=== PATIENT | female | born 1955 | race Caucasian/White ===

== ENCOUNTER → 2023-10-03 15:45 | Outpatient (REF) | payer MEDICARE, OTHER, SELFPAY | LOC: WDC 15:45 | PROVIDERS: ATTENDING PHYSICIAN Physician Assistant Medical | DX: Z12.31 Encounter for screening mammogram for malignant neoplasm of breast (principal) | CPT/HCPCS: 77063; 77067 ==

== ENCOUNTER 2023-10-07 06:31 | Inpatient (IN) | payer MEDICARE, OTHER, SELFPAY ==
--- NOTE | 2023-09-04 11:32 | CM ---
Patient is scheduled for a R TK Revision on 10/07/23. Spoke with patient prior to surgery via telephone. Patient had a R TKR at in 2018. Reintroduced role of Orthopedic Navigator. Patient reports that she lives with her and daughter in a
two story home. There are two steps to enter and a flight of steps to the second floor. There is a powder room on the entry clerk. She currently functions independently. She has a cane and rolling walker. She has never had VN services. PCP is Shay
Fab.
Discussed orthopedic program and post surgical plans. Reviewed anticipated length of stay and that goal is for her to return home at discharge. Also reviewed outpatient PT. Patient is in agreement with tentative plan and will go directly to
outpatient PT at [facility]. She will have support from her and daughter when she goes home.
Patient will complete online education.
Plan: Orthopedic Navigator will remain available to assist with the care of patient and will reassess discharge needs after surgery.
[2023-09-18 14:02] VITALS: BMI 37.3
[2023-09-18 14:31] LABS: Hematocrit 40.6 % (37.0-47.0); Hemoglobin 13.1 g/dL (12.0-16.0); Mean Corp Hgb Conc. 32.3 g/dL (33.0-37.0); Mean Corpuscular Hgb 29.1 pg (27.0-31.0); Mean Corpuscular Volume 90.2 fL (81.0-99.0); Mean Platelet Volume 9.3 fL (7.4-10.4); Platelet Count 232 10^3/uL (130-400); Red Cell Dist. Width 13.7 % (11.5-14.5); White Blood Cell Count 7.9 10^3/uL (4.8-10.8)
[2023-09-18 14:45] LABS: ALT (SGPT) 31 U/L (0-35); AST (SGOT) 27 U/L (14-36); Albumin 3.9 g/dl (3.5-5.0); Alkaline Phosphatase 84 U/L (38-126); Blood Urea Nitrogen 29 mg/dl (7-17); Calcium 9.3 mg/dl (8.4-10.2); Carbon Dioxide 31 mmol/L (22-30); Chloride 103 mmol/L (98-107); Estimated Creatinine Clearance 67 ml/min; Glucose 111 mg/dl (70-99); Potassium 3.9 mmol/L (3.5-5.1); Sodium 138 mmol/L (135-145); Total Bilirubin 0.6 mg/dl (0.2-1.3); Total Protein 6.4 g/dl (6.3-8.2); eGFR > 60.00
[2023-09-18 14:50] VITALS: BMI 37.3
[2023-09-19 09:48] LABS: Glycohemoglobin (HgbA1c) 5.5 % (4.0-5.6)
[2023-10-07] VITALS (12 sets, daily range): BP systolic 107–133; BP diastolic 53–95
[2023-10-07] MEDS: TYLENOL 650 MG PO ×2 (10:55→18:56)
[2023-10-07] MEDS: CELEBREX 200 MG PO (10:55)
[2023-10-07] MEDS: NORMOSOL-R 1000 IV ×2 (11:06→17:47)
[2023-10-07] MEDS: ROXICODONE 5 MG PO (17:30)
[2023-10-07] MEDS: DILAUDID 0.25 MG IV ×4 (17:33→18:02)
[2023-10-07] MEDS: ULTRAM 50 MG PO ×2 (18:56→21:46)
[2023-10-07] MEDS: ASPIRIN 325 MG PO (18:56)
[2023-10-07] MEDS: DECADRON 4 MG PO (20:06)
[2023-10-07] MEDS: SENOKOT 17.1999999999999993 MG PO (20:06)
[2023-10-07] MEDS: COLACE 100 MG PO (20:06)
[2023-10-07] MEDS: BACTROBAN 2% OINTMENT 1 APPLIC NASAL (20:06)
[2023-10-07] MEDS: TORADOL 15 MG IV (20:07)
[2023-10-07] MEDS: TYLENOL PO (21:00)
[2023-10-07] MEDS: ANCEF 5 IV (21:45)
[2023-10-07] MEDS: NEURONTIN 300 MG PO (21:45)
[2023-10-07] MEDS: PEPCID 20 MG PO (21:46)
[2023-10-07] MEDS: LIPITOR 20 MG PO (21:46)
[2023-10-08] MEDS: TYLENOL PO ×2 (00:51→05:00)
[2023-10-08 03:36] VITALS: BP 113/68
[2023-10-08] MEDS: ANCEF 5 IV (05:04)
[2023-10-08 07:10] VITALS: BP 133/73
[2023-10-08] MEDS: ULTRAM 50 MG PO ×2 (08:36→12:48)
[2023-10-08] MEDS: TYLENOL 650 MG PO ×2 (08:37→12:45)
[2023-10-08] MEDS: DECADRON 4 MG PO (08:37)
[2023-10-08] MEDS: COLACE 100 MG PO (08:37)
[2023-10-08] MEDS: MOBIC 15 MG PO (08:37)
[2023-10-08] MEDS: BACTROBAN 2% OINTMENT 1 APPLIC NASAL (08:37)
[2023-10-08] MEDS: SENOKOT 17.1999999999999993 MG PO (08:37)
[2023-10-08] MEDS: TORADOL 15 MG IV (08:38)
[2023-10-08] MEDS: ASPIRIN 325 MG PO (08:38)
[2023-10-08] MEDS: FLUSH (NSS) 2 FLUSH IV (08:39)
[2023-10-08 09:56] VITALS: BP 121/65; PULSE 75; O2SAT 94
[2023-10-08 10:40] VITALS: BP 100/63; PULSE 71; O2SAT 93
[2023-10-08] MEDS: ROXICODONE 5 MG PO (11:10)
--- NOTE | 2023-10-08 11:16 | W.PN.ORTHO ---
Today's Communication / Plan
-
d/c
Assessment
.
Distal Motor Intact: Yes
Dressing:
Clean, dry and intact.
Plan
.
Surgery / Date: R TKA Revision Dr. Brown 10/07/23
DVT Prophylaxis: Aspirin
Activity:
Out of bed.
PT/OT
Discharge Plan: Home w/ Outpatient PT
Subjective
.
.:
Patient resting comfortably.
Vital Signs and Labs
.
Vital Signs and Labs:
Lab Results
09/18/23 13:55
09/18/23 13:55
Temp Pulse Resp BP Pulse Ox
97.8 F 73 17 133/73 92
10/08/23 07:10 10/08/23 07:10 10/08/23 07:10 10/08/23 08:38 10/08/23 07:10
Non-invasive Hgb result: 14.2
Physical Exam
-
HEENT: No pallor, cyanosis, or jaundice. Throat clear.
NECK: Supple. No JVD.
RESPIRATORY: Lungs clear to auscultation.
CVS: S1, S2 normal. RRR.� No murmur, rub or gallop.
ABDOMEN: Soft, non-tender. No distension. BS+/normal.
EXTREMITIES: strength equal, no calf pain with palpation
CLIENT SUPPORT COORDINATOR: AOx3. No focal deficits. polls or surveys interviewer grossly intact
[2023-10-08 11:27] VITALS: BP 121/65
--- NOTE | 2023-10-08 11:30 | W.DS.TRANS ---
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
-
Discharge Instructions:
Sleep Apnea Risk Intermediate
Discharge Diagnosis/Procedures R TKA Revision Dr. Brown 10/07/23
Diet As tolerated
Driving Restrictions No driving
Bathing Restrictions OK to Shower
Other Services PT
Instructions:
Stand-Alone Forms: Total Hip/Knee Replacement D/C
Changes to Home Medications: Yes
Discharge Medications:
DC Medications w/original date entered in [employer]
atorvastatin 20 mg tablet 20 mg PO HS 09/13/23
calcium carbonate 500 mg-vitamin D3 10 mcg (400 unit) tablet (Calcium 500 + D) 2 tab PO DAILY 09/13/23
ibuprofen 200 mg tablet 200 mg PO PRN PRN pain 09/13/23
lisinopril 20 mg-hydrochlorothiazide 12.5 mg tablet 1 tab PO DAILY 09/13/23
multivitamin 1 tab PO DAILY 09/13/23
mupirocin 2 % topical ointment 1 applic topical BID infection prevention #1 tube 09/18/23
Saccharomyces boulardii 250 mg capsule (Florastor) 250 mg PO BID #1 cap 10/08/23
acetaminophen 325 mg capsule (Tylenol) 650 mg PO QID #2 caps 10/08/23
aspirin 325 mg tablet 325 mg PO DAILY blood clot prevention #1 tab 10/08/23
cefadroxil 500 mg capsule 500 mg PO BID infection prevention #14 caps 10/08/23
dexamethasone 4 mg tablet 4 mg PO BID inflammation #6 tabs 10/08/23
docusate sodium 100 mg capsule (Colace) 100 mg PO BID stool softner #1 cap 10/08/23
famotidine 20 mg tablet 20 mg PO HS GI prophylaxis #30 tabs 10/08/23
gabapentin 300 mg capsule 300 mg PO HS sleep/pain #10 caps 10/08/23
magnesium hydroxide 400 mg/5 mL oral suspension (Milk of Magnesia) 30 ml PO HS PRN Constipation #1 mL 10/08/23
meloxicam 15 mg tablet 15 mg PO DAILY anti-inflammatory #14 tabs 10/08/23
oxycodone 5 mg tablet 5 - 10 mg PO Q6HPRN PRN 1 tab moderate-2 tabs severe pain #30 tabs 10/08/23
sennosides 8.6 mg tablet (Senokot) 17.2 mg PO BID laxative #2 tabs 10/08/23
tramadol 50 mg tablet 50 mg PO QID ongoing therapy #30 tabs 10/08/23
Home Medication Changes
Saccharomyces boulardii 250 mg capsule (Florastor) 250 mg PO BID #1 cap 10/08/23
cefadroxil 500 mg capsule 500 mg PO BID infection prevention #14 caps 10/08/23
dexamethasone 4 mg tablet 4 mg PO BID inflammation #6 tabs 10/08/23
famotidine 20 mg tablet 20 mg PO HS GI prophylaxis #30 tabs 10/08/23
gabapentin 300 mg capsule 300 mg PO HS sleep/pain #10 caps 10/08/23
meloxicam 15 mg tablet 15 mg PO DAILY anti-inflammatory #14 tabs 10/08/23
oxycodone 5 mg tablet 5 - 10 mg PO Q6HPRN PRN 1 tab moderate-2 tabs severe pain #30 tabs 10/08/23
tramadol 50 mg tablet 50 mg PO QID ongoing therapy #30 tabs 10/08/23
Pending Results: No
--- NOTE | 2023-10-08 14:13 | CM ---
Reviewed chart and held rounds with PT, OT and nursing. Patient admitted as planned for elective R TKRevision. Met with patient at bedside. Confirmed information previously obtained for assessment. Also discussed discharge plans. The plan is for
patient to return home at discharge. She will have support from her and daughter when she goes home. Patient will go directly to outpatient PT and will go to [facility]. She has an appointment scheduled for Saturday, 10/09. Reviewed need
to schedule appointment with PA at Dr. Brown office in two weeks for removal of flakito.
Patient has all needed DME at home.
She will use [facility] pharmacy for discharge prescriptions.
== END 2023-10-08 15:57 | disposition home or self-care (01) | DRG 468 ==
LOC: 2 SOUTH 06:31
PROVIDERS: ADMITTING PHYSICIAN Specialist; FAMILY PHYSICIAN Physician Assistant Medical; OTHER PHYSICIAN Internal Medicine Cardiovascular Disease; REFERRING PHYSICIAN Physician Assistant Medical
PROC: 0SPC0JZ Removal of Synthetic Substitute from Right Knee Joint, Open Approach (ICD-10-PCS; 2023-10-07)
PROC: 0SRC0J9 Replacement of Right Knee Joint with Synthetic Substitute, Cemented, Open Approach (ICD-10-PCS; 2023-10-07)
DX: M17.11 Unilateral primary osteoarthritis, right knee (principal); E66.9 Obesity, unspecified; Z68.37 Body mass index [BMI] 37.0-37.9, adult; Z96.653 Presence of artificial knee joint, bilateral
CPT/HCPCS: 36415; 73560; 80053; 83036; 85027; 86850; 86900; 86901; 87070; 97110; 97116; 97161; 97166; 97530; C1713; C1762; C1776

== ENCOUNTER → 2025-03-31 14:10 | Outpatient (REF) | payer MEDICARE, OTHER, SELFPAY | LOC: RCS 14:10 | PROVIDERS: ATTENDING PHYSICIAN Internal Medicine Cardiovascular Disease; FAMILY PHYSICIAN Physician Assistant Medical | DX: I34.0 Nonrheumatic mitral (valve) insufficiency (principal) | CPT/HCPCS: 93306 ==